=== PATIENT | female | born 1955 ===

== ENCOUNTER 2019-01-31 09:15 | Inpatient (IN) | payer OTHER ==
[~2019-01-31] VITALS: Ht 149.9 cm; Wt 52.2 kg
[2019-01-31] MEDS ORDERED: METFORMIN HCL500 MG PO (12:07)
[2019-01-31] MEDS ORDERED: ATORVASTATIN CA20 MG PO (12:08)
[2019-01-31] MEDS ORDERED: SINGULAIR10 MG PO (12:08)
[2019-01-31] MEDS ORDERED: LISINOPRIL2.5 MG PO (12:09)
[2019-01-31] MEDS ORDERED: [UNRECOGNIZED DRUG - OTHER] PO (12:09)
[2019-01-31] MEDS ORDERED: ECOTRIN81 MG PO (12:09)
[2019-01-31] MEDS ORDERED: SPIRIVA RESPIMAT4 G1 IH (12:10)
[2019-01-31] MEDS ORDERED: SYMBICORT 80/10.2 GM IH (12:10)
[2019-01-31] MEDS ORDERED: HUMALOG KW100 UNIT/1 SUBCUTANEO (13:13)
[2019-01-31] MEDS ORDERED: LANTUS SOL100 UNIT/1 SUBCUTANEO (13:14)
[2019-02-06] MEDS ORDERED: HYOSCYAMINE0.125 M1 SL (10:06)
[2019-02-06] MEDS ORDERED: OXYC1TAB9 PO (10:06)
== END 2019-02-06 11:22 | disposition home or self-care (01) | DRG 349 ==
LOC: O/R 02-04 06:15 → SURH 02-04 06:15
PROVIDERS: ADMIT Surgery
PROC: 0DUR0KZ Supplement Anal Sphincter with Nonautologous Tissue Substitute, Open Approach (ICD-10-PCS; 2019-02-04)
PROC: 0DBP7ZZ Excision of Rectum, Via Natural or Artificial Opening (ICD-10-PCS; principal; 2019-02-04 13:15)
DX: K62.3 Rectal prolapse (principal); R15.9 Full incontinence of feces